=== PATIENT | female | born 1985 | race Caucasian/White ===

== ENCOUNTER 2016-04-19 05:42 | Emergency (ER) | payer OTHER ==
--- NOTE | 2016-04-19 05:49 | EDM.PDOC ---
<Hayden Valencia - Last Filed: 04/19/16 07:12> ED HPI GENERAL MEDICAL PROBLEM - General Chief Complaint: Abdominal Pain Stated Complaint: STOMACH AND BACK PAIN Time Seen by Provider: 04/19/16 05:49 - History of Present Illness INITIAL COMMENTS - FREE TEXT/NARRATIVE: 31-year-old female presents to the emergency room with abdominal discomfort that radiates into her back. This started around midnight. She couldn't get comfortable with this upper abdominal discomfort that started radiating to her back and into her right shoulder blade. This was not associated with any fevers or chills no vomiting. She's had some mild nausea when the pain was at its worst. Patient has no history of reflux or ulcer disease. No prior history of abdominal surgeries. The patient does not smoke. Past medical history is unremarkable. Medications include control pills allergies none. Epigastric Pain Score (Numeric/FACES): 5 - Related Data Allergies Allergy/AdvReac Type Severity Reaction Status Date / Time No Known Allergies Allergy Verified 04/19/16 05:52 Home Meds: Home Meds Norethindrone AC-Eth Estradiol [Norethind-Eth Estrad 1-0.02 mg] 1 each PO DAILY 04/19/16 [History] ED ROS GENERAL - Review of Systems Review Of Systems: See Below Constitutional: Reports: no symptoms. Denies: fever, chills HEENT: Reports: No symptoms Respiratory: Reports: no symptoms Cardiovascular: Reports: No symptoms GI/Abdominal: Reports: Abdominal pain, Nausea. Denies: Black stool, Bloody stool, Constipation, Diarrhea, Vomiting : Reports: no symptoms Neurological: Reports: no symptoms ED EXAM, GENERAL - Physical Exam Exam: See Below Exam Limited By: No limitations General Appearance: alert, no apparent distress Neck: normal inspection, supple, non-tender, full range of motion. No: lymphadenopathy (L), lymphadenopathy (R) Respiratory/Chest: no respiratory distress, lungs clear, normal breath sounds Cardiovascular: regular rate, rhythm, no edema, no murmur GI/Abdominal: normal bowel sounds, soft, no organomegaly, no distention, no mass , other (patient has midepigastric discomfort with palpation that extends leftward. No significant right upper quadrant pain no rigidity no rebound or guarding noted). No: non tender Back Exam: normal inspection. No: CVA tenderness (L), CVA tenderness (R) Course - Vital Signs Last Recorded V/S: Last Vital Signs Temp 98.2 F 04/19/16 07:37 Pulse 68 04/19/16 07:37 Resp 16 04/19/16 07:37 BP 127/78 04/19/16 07:37 Pulse Ox 99 04/19/16 07:37 - Orders/Labs/Meds Orders: Active Orders 24 hr Category Date Time Status Abdomen Pelvis w Cont [CT] Stat Exams 04/19/16 07:00 Taken Lactated Ringers [Ringers, Lactated] 1,000 ml Med 04/19/16 07:00 Active IV ASDIRECTED Sodium Chloride 0.9% [Normal Saline] 100 ml Med 04/19/16 07:45 Active IV ASDIRECTED Medication Orders Lactated Ringer's (Ringers, Lactated) 1,000 mls @ 150 mls/hr IV ASDIRECTED SHANNAN Sodium Chloride (Normal Saline) 100 mls @ 60 mls/hr IV ASDIRECTED SHANNAN Last Admin: 04/19/16 08:29 Dose: 60 mls/hr Labs: Laboratory Tests 04/19/16 04/19/16 04/19/16 Range/Units 06:15 06:15 06:25 WBC 8.03 (3.98-10.04) K/mm3 RBC 4.41 (3.98-5.22) M/mm3 Hgb 14.3 (11.2-15.7) gm/L Hct 41.7 (34.1-44.9) % MCV 94.6 (79.4-94.8) fl MCH 32.4 H (25.6-32.2) pg MCHC 34.3 (32.2-35.5) g/dl RDW Std Deviation 41.1 (36.4-46.3) fL Plt Count 261 (182-369) K/mm3 MPV 10.4 (9.4-12.3) fl Neutrophils % (Manual) 49 (40-60) % Band Neutrophils % 0 (0-10) % Lymphocytes % (Manual) 44 H (20-40) % Atypical Lymphs % 0 % Monocytes % (Manual) 0 L (2-10) % Eosinophils % (Manual) 7 H (0.7-5.8) % Basophils % (Manual) 0 L (0.1-1.2) Platelet Estimate Adequate RBC Morph Comment Normal Sodium 138 (136-145) mEq/L Potassium 3.9 (3.5-5.1) mEq/L Chloride 103 (98-107) mEq/L Carbon Dioxide 24 (21-32) mEq/L Anion Gap 14.9 (5-15) BUN 12 (7-18) mg/dL Creatinine 1.1 H (0.55-1.02) mg/dL Est Cr Clr Drug Dosing 67.29 mL/min Estimated GFR (MDRD) 58 (>60) mL/min BUN/Creatinine Ratio 10.9 L (14-18) Glucose 98 (74-106) mg/dL Calcium 9.0 (8.5-10.1) mg/dL Total Bilirubin 0.3 (0.2-1.0) mg/dL AST 14 L (15-37) U/L ALT 23 (14-59) U/L Alkaline Phosphatase 64 (46-116) U/L Total Protein 7.9 (6.4-8.2) g/dl Albumin 3.7 (3.4-5.0) g/dl Globulin 4.2 gm/dL Albumin/Globulin Ratio 0.9 L (1-2) Lipase 994 H (73-393) U/L Urine Color (Yellow) Urine Appearance (Clear) Urine pH (5.0-8.0) Ur Specific [place] (1.005-1.030) Urine Protein (Negative) Urine Glucose (UA) (Negative) Urine Ketones (Negative) Urine Occult Blood (Negative) Urine Nitrite (Negative) Urine Bilirubin (Negative) Urine Urobilinogen (0.2-1.0) Ur Leukocyte Esterase (Negative) Urine HCG, Qual Negative (NEGATIVE) 04/19/16 Range/Units 06:25 WBC (3.98-10.04) K/mm3 RBC (3.98-5.22) M/mm3 Hgb (11.2-15.7) gm/L Hct (34.1-44.9) % MCV (79.4-94.8) fl MCH (25.6-32.2) pg MCHC (32.2-35.5) g/dl RDW Std Deviation (36.4-46.3) fL Plt Count (182-369) K/mm3 MPV (9.4-12.3) fl Neutrophils % (Manual) (40-60) % Band Neutrophils % (0-10) % Lymphocytes % (Manual) (20-40) % Atypical Lymphs % % Monocytes % (Manual) (2-10) % Eosinophils % (Manual) (0.7-5.8) % Basophils % (Manual) (0.1-1.2) Platelet Estimate RBC Morph Comment Sodium (136-145) mEq/L Potassium (3.5-5.1) mEq/L Chloride (98-107) mEq/L Carbon Dioxide (21-32) mEq/L Anion Gap (5-15) BUN (7-18) mg/dL Creatinine (0.55-1.02) mg/dL Est Cr Clr Drug Dosing mL/min Estimated GFR (MDRD) (>60) mL/min BUN/Creatinine Ratio (14-18) Glucose (74-106) mg/dL Calcium (8.5-10.1) mg/dL Total Bilirubin (0.2-1.0) mg/dL AST (15-37) U/L ALT (14-59) U/L Alkaline Phosphatase (46-116) U/L Total Protein (6.4-8.2) g/dl Albumin (3.4-5.0) g/dl Globulin gm/dL Albumin/Globulin Ratio (1-2) Lipase (73-393) U/L Urine Color Yellow (Yellow) Urine Appearance Clear (Clear) Urine pH 6.0 (5.0-8.0) Ur Specific [place] > or = 1.030 (1.005-1.030) Urine Protein Trace H (Negative) Urine Glucose (UA) Negative (Negative) Urine Ketones Negative (Negative) Urine Occult Blood 1+ H (Negative) Urine Nitrite Negative (Negative) Urine Bilirubin Negative (Negative) Urine Urobilinogen 0.2 (0.2-1.0) Ur Leukocyte Esterase Negative (Negative) Urine HCG, Qual (NEGATIVE) Meds: Medications Generic Name Dose Route Start Last Admin Trade Name Freq PRN Reason Stop Dose Admin Lactated Ringer's 1,000 mls @ 150 mls/hr 04/19/16 07:00 Ringers, Lactated IV ASDIRECTED SHANNAN Sodium Chloride 100 mls @ 60 mls/hr 04/19/16 07:45 04/19/16 08:29 Normal Saline IV 60 mls/hr ASDIRECTED SHANNAN Administration Discontinued Medications Generic Name Dose Route Start Last Admin Trade Name Mellissa PRN Reason Stop Dose Admin Al Hydroxide/Mg Hydroxide 30 0 ml 04/19/16 05:58 04/19/16 06:02 ml/ Lidocaine HCl 15 ml PO 04/19/16 05:59 45 ml ONETIME ONE Administration Diatrizoate Meglum/Diatrizoate Sod 90 ml 04/19/16 07:37 04/19/16 08:29 Gastrografin 37% PO 04/19/16 07:38 90 ml ONETIME ONE Administration Lactated Ringer's 500 mls @ 999 mls/hr 04/19/16 07:11 04/19/16 07:21 Ringers, Lactated IV 04/19/16 07:41 999 mls/hr .BOLUS ONE Administration Iopamidol 100 ml 04/19/16 07:37 04/19/16 08:30 Isovue-370 (76%) IVPUSH 04/19/16 07:38 100 ml ONETIME ONE Administration Ondansetron HCl 4 mg 04/19/16 06:41 04/19/16 06:44 Zofran Odt PO 04/19/16 06:42 4 mg ONETIME ONE Administration Pantoprazole Sodium 40 mg 04/19/16 07:03 04/19/16 07:24 Protonix Iv IVPUSH 04/19/16 07:04 40 mg ONETIME ONE Administration Sodium Chloride 10 ml 04/19/16 07:37 04/19/16 08:29 Saline Flush FLUSH 04/19/16 07:38 10 ml ONETIME ONE Administration - Re-Assessments/Exams Free Text/Narrative Re-Assessment/Exam: 04/19/16 07:12 laboratory evaluation complete urinalysis is not suggestive of infectious process however she's got 1+ microscopic hematuria causes not well understood the patient does not have regular periods because of her control her hCG is negative. Her white count is not elevated. Chemistries are concerning for a lipase that is elevated over 900. Abdominal pelvic CT is ordered with IV and oral contrast. At this point is change of shift further care and disposition per Dr. Beasley. Departure - Departure Disposition: Home, Self-Care 01 Clinical Impression: Pancreatitis Qualifiers: Chronicity: acute Pancreatitis type: idiopathic Acute pancreatitis complication : no infection or necrosis Qualified Code(s): K85.00 - Idiopathic acute pancreatitis without necrosis or infection Referrals: Yolie Carpio [Physician] - 3 Days Forms: ED Department Discharge Additional Instructions: Take a clear liquid diet for the next 2 days. That would include some juices, broth, clear sodas, clearer jello and so forth. After that, you can start advancing your diet. Please return if you are worse such as more pain, nausea and vomiting. Follow up with Dr Carpio in 3 days. <Josue Beasley - Last Filed: 04/19/16 09:52> Course - Re-Assessments/Exams Free Text/Narrative Re-Assessment/Exam: 04/19/16 09:[address] Valencia. Her CBC looks good. Her creatinine is a little elevated at 1.1. Her lipase is elevated at 994. Dr Valencia did order a CT of her abdomen and pelvis shows a hital hernia but nothing acute. She is feeling better and she had no pain upon palpation. I feel she can be discharged home and managed outpatient. I will put her on a clear liquid diet for 2 days and advance as tolerated. Departure - Departure Time of Disposition: 09:50 Condition: good
[2016-04-19] MEDS ORDERED: Alum Hydrox/Mag Hydrox/Simeth 30 ML, Lidocaine 2% 15 ML PO ONE ×2 (05:58)
[2016-04-19] MEDS ORDERED: Ondansetron 4 MG Tab.DIS PO ONE (06:41)
[2016-04-19] MEDS ORDERED: Lactated Ringers 1,000 ML IV SCH (07:00)
[2016-04-19] MEDS ORDERED: Pantoprazole 40 MG Vial IVPUSH ONE (07:03)
[2016-04-19] MEDS ORDERED: Lactated Ringers 500 ML IV ONE (07:11)
[2016-04-19] MEDS ORDERED: Sodium Chloride 0.9% 10 ML Syringe FLUSH ONE (07:37)
[2016-04-19] MEDS ORDERED: Iopamidol 755 Mg/ML 100 ML Bottle IVPUSH ONE (07:37)
[2016-04-19] MEDS ORDERED: Diatrizoate Meglumine/Diatrizoate Sodium 37% 120 ML Bottle PO ONE (07:37)
[2016-04-19] MEDS ORDERED: Sodium Chloride 0.9% 100 ML IV SCH (07:45)
[2016-04-19 09:59] VITALS: BP 102/56
--- NOTE | 2016-04-19 09:59 | CT ---
CT abdomen and pelvis Technique: Multiple axial sections were obtained from above the dome of the diaphragm inferiorly through the pubic symphysis. Intravenous and oral contrast has been given. Delayed images were also obtained through the bladder. Comparison: No previous abdominal imaging. Findings: Visualized lung bases are clear. Liver shows no focal abnormality. Gallbladder shows no calcified gallstones. Pancreas appears within normal limits. Maximum length of the spleen is approximately 9.1 cm which is normal. Adrenal glands show no nodule. Pancreas appears unremarkable. No inflammatory change is identified around the pancreas. Small hiatal hernia is noted. Kidneys show contrast enhancement without hydronephrosis or mass. Incidental extrarenal pelves are noted within both kidneys which is a normal variant. Contrast noted within the bladder on the delayed images. Aorta shows no aneurysmal dilatation. No retroperitoneal adenopathy or mesenteric abnormalities are seen. No pelvic mass or adenopathy is seen. No free fluid is identified. No bowel dilatation is identified. Appendix is seen which appears normal. Bone window settings were reviewed which appear within normal limits for the patient's age. Impression: 1. Small hiatal hernia. 2. CT study of the abdomen and pelvis is otherwise unremarkable. No abnormality is seen within or around the pancreas. Diagnostic code #2
== END 2016-04-19 09:57 | disposition home or self-care (01) ==
LOC: JD.ED 05:42
DX: K85.00 Idiopathic acute pancreatitis without necrosis or infection (principal); K44.9 Diaphragmatic hernia without obstruction or gangrene
CPT/HCPCS: 36415; 74177; 74177-26; 80053; 81003; 81025; 83690; 85025; 96361; 96374; 99284; 99284-25; A9270-GY; C9113; J7030; J7050; J7120; Q9963; Q9967

== ENCOUNTER 2018-04-30 02:45 | Emergency (ER) | payer OTHER ==
[2018-04-30 02:54] VITALS: BP 119/77
--- NOTE | 2018-04-30 03:40 | EDM.PDOC ---
ED HPI GENERAL MEDICAL PROBLEM - General Chief Complaint: Upper Extremity Injury/Pain Stated Complaint: RIGHT WRIST INJURY Time Seen by Provider: 04/30/18 02:55 - History of Present Illness INITIAL COMMENTS - FREE TEXT/NARRATIVE: 33-year-old female presents emergency room right forearm elbow and wrist pain. Patient slipped and fell onto an outstretched arm with it off to her side. She has significant pain just beyond the elbow and then she gets a shooting pain up and down her arm. Right Elbow Pain Score (Numeric/FACES): 7 - Related Data Allergies Allergy/AdvReac Type Severity Reaction Status Date / Time No Known Allergies Allergy Verified 04/30/18 02:54 Home Meds: Home Meds Norethindrone AC-Eth Estradiol [Norethind-Eth Estrad 1-0.02 mg] 1 each PO DAILY 04/19/16 [History] Past Medical History HEENT History: Reports: Other (See Below) Other HEENT History: wears glasses Respiratory History: Reports: Bronchitis, Recurrent - Past Surgical History HEENT Surgical History: Reports: None Social & Family History - Tobacco Use Smoking Status *Q: Unknown Ever Smoked - Caffeine Use Caffeine Use: Reports: Coffee Review of Systems - Review of Systems Review Of Systems: See Below Eyes: Reports: No Symptoms, Other Nose: Reports: No Symptoms Mouth/Throat: Reports: No Symptoms Respiratory: Reports: No Symptoms Cardiovascular: Reports: No Symptoms GI/Abdominal: Reports: No Symptoms ED EXAM, GENERAL - Physical Exam Exam: See Below Exam Limited By: No Limitations General Appearance: Alert, No Apparent Distress Head: Atraumatic, Normocephalic Neck: Normal Inspection Respiratory/Chest: No Respiratory Distress, Lungs Clear, Normal Breath Sounds Cardiovascular: Normal Peripheral Pulses, Regular Rate, Rhythm, No Edema, No Murmur Extremities: Other (Examination of her right arm shows no tenderness around the elbow humerus is nontender she has some pain that shoots up from her wrist into her elbow but most of her pain is in the proximal third of her forearm to the mid forearm. She has some pain distally. Neurovascular status of the hand is normal) Course - Vital Signs Last Recorded V/S: Last Vital Signs Temp 36.6 C 04/30/18 02:52 Pulse 63 04/30/18 02:52 Resp 18 04/30/18 02:52 BP 119/77 04/30/18 02:52 Pulse Ox 98 04/30/18 02:52 - Orders/Labs/Meds Orders: Active Orders 24 hr Category Date Time Status Elbow Min 3V Rt [CR] Stat Exams 04/30/18 03:13 Taken Forearm 2V Rt [CR] Stat Exams 04/30/18 03:13 Taken Durable Medical Equipment for Discharge [DME for Oth 04/30/18 04:25 Ordered Discharge] [COMM] Stat - Re-Assessments/Exams Free Text/Narrative Re-Assessment/Exam: 04/30/18 04:28 X-rays show no obvious fracture dislocation laterally elbow shows slightly more prominent sail sign however her pain is mostly in mid and distal forearm. X- rays of this area including the wrist and proximal hand are unrevealing. Patient to be placed in a sling. Departure - Departure Time of Disposition: 04:29 Disposition: Home, Self-Care 01 Clinical Impression: Right forearm injury - Discharge Information Referrals: PCP,None [Primary Care Provider] - Forms: ED Department Discharge Additional Instructions: Return to the emergency room with any questions or problems. No strenuous activity with right arm. Wear the sling for now. Follow-up with your regular provider in 2 days if needed. Tylenol or Motrin as needed for discomfort - My Orders Last 24 Hours: My Active Orders 04/30/18 03:13 Elbow Min 3V Rt [CR] Stat Forearm 2V Rt [CR] Stat 04/30/18 04:25 Durable Medical Equipment for Discharge [DME for Discharge] [COMM] Stat - Assessment/Plan Last 24 Hours: My Active Orders 04/30/18 03:13 Elbow Min 3V Rt [CR] Stat Forearm 2V Rt [CR] Stat 04/30/18 04:25 Durable Medical Equipment for Discharge [DME for Discharge] [COMM] Stat
--- NOTE | 2018-04-30 08:14 | CR ---
Right elbow: Three views of the right elbow were obtained. Comparison: No previous elbow study. Joint spaces are maintained. Elevated anterior fat pad is seen but posterior fat pad not visualized. Minimal area of sclerosis is noted within the radial neck suspicious for slightly impacted fracture. No additional abnormality is seen. Impression: 1. Elevated anterior fat-pad. 2. Slightly impacted radial neck fracture is suspected. Diagnostic code #3
--- NOTE | 2018-04-30 08:14 | CR ---
Right forearm: Two views of the right forearm were obtained. Comparison: No prior forearm exam. Radial neck fracture is identified. No additional fracture or other abnormality is seen. Impression: 1. Radial neck fracture. 2. Right forearm study is otherwise unremarkable. Diagnostic code #3
== END 2018-04-30 04:40 | disposition home or self-care (01) ==
LOC: JD.ED 02:45
DX: S59.911A Unspecified injury of right forearm, initial encounter (principal); W01.0XXA Fall on same level from slipping, tripping and stumbling without subsequent striking against object, initial encounter
CPT/HCPCS: 29105; 29125; 73080-26-RT; 73080-RT; 73090-26-RT; 73090-RT; 99282; 99283-25